=== PATIENT | female | born 1965 | race Caucasian/White ===

== ENCOUNTER 2017-03-11 06:48 | Day surgery (SDC) | payer MEDICAID ==
[~2017-03-11 06:48] MED LIST: ACETAMINOPHEN500 M4 PO; AMOXICILLIN500 MG PO; CLEOCIN HCL300 MG PO; DILANTIN100 MG PO; HYDROCODON-ACE1 EAC5 PO; MULTIVITAMIN1 TAB PO; NAPROSYN500 M1 PO; NEURONTIN300 M1 PO; NORCO 5/325 TAB1 TAB PO; PERCOCET 5-3251 EACH PO; PERCOCET 5/3251 TAB PO; PREDNISONE20 M1 PO; PROMETHAZINE HC25 M3 PO; TOPAMAX50 M3 PO; ULTRAM50 M1 PO; VITAMIN D PO; ZANAFLEX4 M2 PO; ZOFRAN4 M2 PO
== END 2017-03-11 11:10 ==
LOC: WSU 06:48 → SHSB 06:50 → ORW 09:00 → SHSB 10:00
PROC: 0UDB8ZX Extraction of Endometrium, Via Natural or Artificial Opening Endoscopic, Diagnostic (ICD-10-PCS; principal; 2017-03-11)
DX: N93.8 Other specified abnormal uterine and vaginal bleeding (principal); N92.0 Excessive and frequent menstruation with regular cycle; G40.909 Epilepsy, unspecified, not intractable, without status epilepticus; M19.90 Unspecified osteoarthritis, unspecified site; J44.9 Chronic obstructive pulmonary disease, unspecified; F17.210 Nicotine dependence, cigarettes, uncomplicated; Z88.5 Allergy status to narcotic agent; Z88.8 Allergy status to other drugs, medicaments and biological substances; Z98.890 Other specified postprocedural states

== ENCOUNTER 2017-05-08 15:14 | Emergency (ER) | payer SELFPAY ==
[2017-05-08] MEDS ORDERED: NORCO 5-325 TA1 EACH PO (16:40)
== END 2017-05-08 16:49 ==
LOC: EDMED 15:14
DX: M54.9 Dorsalgia, unspecified (principal); J44.9 Chronic obstructive pulmonary disease, unspecified; Z98.890 Other specified postprocedural states; Z79.899 Other long term (current) drug therapy; F17.200 Nicotine dependence, unspecified, uncomplicated